=== PATIENT | male | born 1950 | race Caucasian/White ===

== ENCOUNTER → 2023-12-28 07:13 | Outpatient (REF) | payer OTHER, SELFPAY | LOC: MRI 07:13 | PROVIDERS: ATTENDING PHYSICIAN Orthopaedic Surgery; FAMILY PHYSICIAN Family Medicine | DX: M54.50 Low back pain, unspecified (principal) | CPT/HCPCS: 72148 ==

== ENCOUNTER 2024-06-09 06:34 | Day surgery (SDC) | payer OTHER, SELFPAY ==
[2024-06-07 14:17] VITALS: BMI 25.8
--- NOTE | 2024-06-08 13:14 | PTCARENOTE ---
Patients 06/07 ECG abnormal- reviewed by Dr. Dodge- no additional interventions required
[2024-06-09] VITALS (8 sets, daily range): BP systolic 97–168; BP diastolic 66–95; BMI 25.8
[2024-06-09] MEDS: NORMOSOL-R/PLASMALYTE-A 1000 IV (08:07)
== END 2024-06-09 11:50 | disposition home or self-care (01) ==
LOC: SDS 06:34
PROVIDERS: ATTENDING PHYSICIAN Surgery; FAMILY PHYSICIAN Family Medicine
DX: K64.3 Fourth degree hemorrhoids (principal); L29.0 Pruritus ani; K64.4 Residual hemorrhoidal skin tags
CPT/HCPCS: 46260; 88304; 36415; 93005